=== PATIENT | female | born 1960 | race Caucasian/White ===

== ENCOUNTER 2017-10-01 22:17 | Emergency (ER) | payer MEDICAID ==
[~2017-10-01] VITALS: Ht 160 cm; Wt 66.0 kg
[~2017-10-01 22:17] MED LIST: LOSA100T14 PO; METF500T4 PO
[2017-10-01] MEDS ORDERED: LORAZEPAM 1MG TABLET PO ONE (23:00)
[2017-10-01] MEDS ORDERED: ASPIRIN 81MG TABLET PO ONE (23:00)
[2017-10-01 23:20] LABS: BASOPHILS % 1.1 % (0.0-2.0); EOSINOPHILS % 3.9 % (0.0-5.0); HEMATOCRIT. 39.9 % (36.0-48.0); HEMOGLOBIN. 13.7 g/dL (12.0-16.0); LYMPHOCYTES % 25.1 % (20.0-50.0); MEAN CORPUSCULAR HEMOGLOBIN 31.3 pg (28.0-32.0); MEAN CORPUSCULAR VOLUME 90.9 fL (81.0-99.0); MEAN PLATELET VOLUME 7.8 fl (7.4-10.4); MONOCYTES % 5.7 % (2.0-8.0); NEUTROPHILS % 64.2 % (40.0-76.0); PLATELET 267 x1000/uL (130-400); RED BLOOD CELL COUNT 4.39 mill/uL (4.2-5.4); RED CELL DISTRIBUTION WIDTH 13.5 % (11.6-14.6)
[2017-10-01 23:28] LABS: PROTHROMBIN TIME 10.1 sec (9.4-11.6)
[2017-10-01] MEDS ORDERED: ASPIRIN 325MG TABLET PO NR (23:30)
[2017-10-01 23:31] LABS: CHLORIDE 104 mEq/L (98-107)
[2017-10-01 23:37] LABS: TROPONIN I < 0.02 ng/mL (0.00-0.04)
[2017-10-02 03:29] VITALS: BP 133/85
== END 2017-10-02 04:17 | disposition home or self-care (01) ==
LOC: ER 22:25
DX: F41.9 Anxiety disorder, unspecified (principal); F43.21 Adjustment disorder with depressed mood; E78.00 Pure hypercholesterolemia, unspecified; I10 Essential (primary) hypertension; E11.9 Type 2 diabetes mellitus without complications
CPT/HCPCS: 36415; 71045; 80053; 82962; 83880; 84484; 85025; 85610; 93005; 99285

== ENCOUNTER 2021-01-17 09:37 | Emergency (ER) | payer MEDICAID ==
[~2021-01-17] VITALS: Ht 157.5 cm; Wt 61.0 kg
[~2021-01-17 09:37] MED LIST changes: -LOSA100T14 PO; +LOSA100T32 PO; +METF-414 PO; -METF500T4 PO
[2021-01-17] MEDS ORDERED: ONDANSETRON HCL 4MG/2ML INJ IV STA (10:48)
[2021-01-17] MEDS ORDERED: MORPHINE SULFATE 4 MG/ML CPJ (NOT FOR IM USE) IV STA (10:48)
[2021-01-17] MEDS ORDERED: SODIUM CHLORIDE 0.9% 1,000 ML IV ONE (11:00)
[2021-01-17 11:01] LABS: HEMOGLOBIN. 13.5 g/dL (12.0-16.0); MEAN CORPUSCULAR VOLUME 89.9 fL (81.0-99.0); RED BLOOD CELL COUNT 4.23 mill/uL (4.2-5.4); RED CELL DISTRIBUTION WIDTH 13.4 % (11.6-14.6)
[2021-01-17 11:06] LABS: INR 0.9
[2021-01-17 11:24] LABS: CHLORIDE 109 mEq/L (98-107)
[2021-01-17 11:28] LABS: ETHANOL BLOOD < 10 mg/dL
[2021-01-17 12:00] LABS: CLARITY URINE CLEAR (CLEAR); COLOR URINE YELLOW (YELLOW); KETONES URINE NEGATIVE (NEGATIVE); LEUKOCYTE ESTERASE URINE NEGATIVE (NEGATIVE); NITRITE URINE NEGATIVE (NEGATIVE); OCCULT BLOOD URINE 1+ (NEGATIVE); PROTEIN URINE NEGATIVE (NEGATIVE); SPECIFIC GRAVITY URINE 1.005 (1.005-1.030); UROBILINOGEN URINE 0.2 E.U./dL (0.2-1.0)
[2021-01-17 12:39] LABS: *AMPHETAMINES SCREEN URINE NEGATIVE (NEGATIVE); *BARBITURATES SCREEN URINE NEGATIVE (NEGATIVE); *BENZODIAZEPINES SCREEN URINE NEGATIVE (NEGATIVE)
[2021-01-17 12:40] LABS: *COCAINE SCREEN URINE NEGATIVE (NEGATIVE); METHADONE URINE SCREEN NEGATIVE (NEGATIVE); OPIATES URINE SCREEN NEGATIVE (NEGATIVE); PHENCYCLIDINE URINE SCREEN NEGATIVE (NEGATIVE)
[2021-01-17 12:41] LABS: CANNABINOID URINE SCREEN NEGATIVE (NEGATIVE)
[2021-01-17] MEDS ORDERED: AZITHROMYCIN 500 MG TABLET PO ONE (12:45)
[2021-01-17] MEDS ORDERED: MORPHINE SULFATE 4 MG/ML CPJ (NOT FOR IM USE) IV ONE (12:45)
[2021-01-17 13:02] LABS: PLATELET ESTIMATE NORMAL
[2021-01-17 13:03] LABS: MEAN PLATELET VOLUME 8.7 fl (7.4-10.4); PLATELET 203 x1000/uL (130-400)
[2021-01-17] MEDS ORDERED: IOHEXOL-300 100 ML BOTTLE ONE (13:30)
[2021-01-17] MEDS ORDERED: AZIT250T12 MT (14:14)
[2021-01-17 15:10] VITALS: BP 135/75
== END 2021-01-17 15:27 | disposition home or self-care (01) ==
LOC: ER 09:37
DX: R07.89 Other chest pain (principal); J84.10 Pulmonary fibrosis, unspecified; E78.00 Pure hypercholesterolemia, unspecified; I10 Essential (primary) hypertension; E11.9 Type 2 diabetes mellitus without complications; Z98.890 Other specified postprocedural states; Z90.49 Acquired absence of other specified parts of digestive tract
CPT/HCPCS: 36415; 71045; 71250; 74177; 80053; 80305; 80320; 81003; 83605; 83690; 84484; 85025; 85610; 86850; 86900; 86901; 96374; 96375; 96376; 99285; J2270; J2405; J7030; Q9967; 96361; G0480